=== PATIENT | female | born 1995 | race Two or more races ===

== ENCOUNTER 2024-07-05 08:46 | Emergency (ER) | payer OTHER ==
[~2024-07-05] VITALS: Ht 160 cm; Wt 97.5 kg
== END 2024-07-05 09:19 | disposition home or self-care (01) ==
LOC: ER 08:48
DX: L60.0 Ingrowing nail (principal); E11.9 Type 2 diabetes mellitus without complications

== ENCOUNTER 2025-02-26 11:37 | Emergency (ER) | payer OTHER ==
[~2025-02-26] VITALS: Ht 160 cm; Wt 97.5 kg
[2025-02-26 12:24] VITALS: BP 146/100; O2SAT 97
[2025-02-26] MEDS ORDERED: CEFTRIAXONE SODIUM 2,000 MG VIAL IV STA (16:50)
[2025-02-26] MEDS ORDERED: CEFTRIAXONE SODIUM 2,000 MG VIAL ONE (16:56)
[2025-02-26] MEDS ORDERED: KETOROLAC TROMETHAMINE 30 MG VIAL ONE (16:59)
[2025-02-26] MEDS ORDERED: KETOROLAC TROMETHAMINE 15 MG VIAL IU STA (17:00)
[2025-02-26 17:13] LABS: BASO % 0.4 % (0.1-1.2); EOS # 0.10 (0.04-0.54); EOS % 1.3 % (0.7-7.0); LYMPH # 2.95 (1.18-3.74); LYMPH % 38.4 % (19.3-53.1); MEAN PLATELET VOLUME 10.20 fl (9.4-12.4); MONO # 0.66 (0.24-0.82); MONO % 8.6 % (4.7-12.5); NEUT # 3.92 (1.56-6.13); NEUT % 51.0 % (34.0-71.1); RED CELL DISTRIBUTION WIDTH 11.5 % (11.6-14.4)
[2025-02-26 17:45] LABS: ALT/SGPT 34.0 U/L (12-78); AST/SGOT 18.0 U/L (15-37); BILIRUBIN TOTAL 0.5 mg/dL (0.3-1.2); BUN CREA RATIO 8.0 (7.0-25.0); CREATININE SERUM 0.84 mg/dL (0.55-1.02); GFR 79.61; GLOBULINA 4.7 G/DL (2.4-3.5); OSMOLALITY SERUM 289.0 MOSM/KG (275-295)
[2025-02-26 18:23] LABS: GLUCOSE FASTING 416.0 mg/dL (65-100)
== END 2025-02-26 19:04 | disposition home or self-care (01) ==
LOC: ER 11:37
PROVIDERS: General Practice
DX: L03.119 Cellulitis of unspecified part of limb (principal); L02.419 Cutaneous abscess of limb, unspecified